=== PATIENT | male | born 2000 | race African-American/Black ===

== ENCOUNTER 2025-11-07 13:59 | Emergency (ER) | payer SELFPAY ==
[2025-11-07] MEDS ORDERED: levETIRAcetam 500 MG TAB ONE (14:36)
== END 2025-11-07 14:37 | disposition home or self-care (01) ==
LOC: ERS 13:59
DX: Z76.0 Encounter for issue of repeat prescription (principal); R56.9 Unspecified convulsions
CPT/HCPCS: 99281